=== PATIENT | male | born 1960 | race Caucasian/White ===

== ENCOUNTER 2017-04-23 22:13 | Emergency (ER) | payer BC, OTHER ==
[2017-04-23 22:20] VITALS: TEMP 98.1
--- NOTE | 2017-04-23 23:27 | EDPHY ---
H & P Stated Complaint: FALL ON STAIRS CHIN LACERATION Source: Patient, Family Exam Limitations: No limitations - Personal History Current Tetanus/Diphtheria Vaccine: Yes Current Tetanus Diphtheria and Acellular Pertussis (TDAP): Yes - Medical/Surgical History Hx Asthma: No Hx Chronic Respiratory Disease: No Hx Diabetes: No Hx Cardiac Disease: No Hx Renal Disease: No Hx Cirrhosis: No Hx Alcoholism: No Hx HIV/AIDS: No Hx Splenectomy or Spleen Trauma: No Other PMH: ANXIETY , GERD - Social History Smoking Status: Never smoked HPI/ROS: CHIEF COMPLAINT: Fall, chin laceration HISTORY OF PRESENT ILLNESS: Patient was walking up a set of stairs earlier today when he tripped and fell. He struck his chin on the step. He did not lose consciousness. He sustained a laceration and has no other complaints. No headache. No changes in vision. No nausea or vomiting. No bruising. Minimal bleeding that stopped with mild pressure. No neck pain. No chest or back injury. No abdominal injury. No injury elsewhere. Tetanus is up-to-date as of 2 years ago. No other associated complaints or modifying factors. TIME OF INJURY: 4:30 p.m. TETANUS STATUS: Current as of 2 years REVIEW OF SYSTEMS: Ten systems reviewed and are negative unless otherwise noted in the HPI EXAMINATION General Appearance: Alert, no distress Head: normocephalic, atraumatic. No Brennan sign. No raccoon eyes. No deformity. Eyes: Pupils equal and round, no conjunctival pallor or injection ENT, Mouth: Mucous membranes moist Neck: Normal inspection. No tenderness. No crepitus, step-off or deformity. Painless range of motion all planes Respiratory: No dyspnea or retractions. No distress Cardiovascular: Pulses normal throughout. Brisk cap refill Neurological: GCS 15. A&O, sensory symmetric, strength symmetric. No pronator drift. No dysmetria. Skin: Warm and dry, no rash. 1.5 cm laceration to the chin, submental. Subcutaneous exposed. No exposure of them fascia or muscle belly Extremities: Nontender, no pedal edema Psychiatric: Mood and affect normal MDM: 10:30 p.m. Mechanical fall with chin laceration. No concussion. No headache, nausea or vomiting. No indication for CT scan of the head based on [place] [facility] head rules. Wound has been anesthetized. Proceed with irrigation closure. 11:00 p.m. PROCEDURE: Laceration repair Consent: Verbal Location: Submental Length of repair: 1.5 cm Complexity: Complex Layer involvement: 2 layer Anesthesia: Local, 1% lidocaine with epinephrine, 7 mL Irrigation: Extensive Debridement: None Procedure description: Following good anesthesia, the wound was copiously irrigated. Wound bed was explored and there is no foreign body noted. Wound borders were approximated well with good hemostasis. Tolerated well without complication. Suture/Staple material: Subcutaneous layer: 5-0 Vicryl, 4 simple interrupted sutures. Dermal layer: 7-0 Prolene, 4 simple interrupted Wound care: Routine as discussed Suture/Staple removal: 5-7 Days 11:25 p.m. Chin laceration without complication. This has been closed with good approximation and good hemostasis. Wound care discussed. Discharged home with instructions to return here in 5-7 days for suture removal. Return sooner for signs of infection as discussed. He is comfortable with this plan and discharged home stable condition SUTURE STAPLE REMOVAL: 5-7 ED Precautions: Worsening pain. Erythema, edema, cyanosis, pallor, paresthesia or anesthesia. SUPERVISION: This patient was independently evaluated without direct examination by the attending physician. Case was discussed with attending physician. (Fabio Vogel ) Constitutional: Initial Vital Signs Temperature (C) 36.7 C 04/23/17 22:16 Heart Rate 82 04/23/17 22:16 Respiratory Rate 18 04/23/17 22:16 Blood Pressure 109/73 04/23/17 22:16 O2 Sat (%) 91 L 04/23/17 22:16 O2 Delivery Mode Room Air Allergies/Adverse Reactions: No Known Allergies Allergy (Unverified 04/23/17 22:19) Home Medications: Medication Instructions Recorded Citalopram Hydrobromide [celeXA 10 10 mg PO DAILY 04/23/17 MG] Famotidine [Pepcid 20 MG (*)] 20 mg PO BID 04/23/17 Omeprazole Magnesium [PRILOSEC] 2.5 mg PO 04/23/17 Medical Decision Making Other Provider: PHYSICIAN DOCUMENTATION: The patient was evaluated and managed by the Physician Cook Chief. My co- signature indicates that I have reviewed this chart and I agree with the findings and plan of care as documented. I am the secondary supervising physician. (Ana Marie) Departure - Departure Disposition: Home, Routine, Self-Care Clinical Impression: Chin laceration Qualifiers: Encounter type: initial encounter Qualified Code(s): S01.81XA - Laceration without foreign body of other part of head, initial encounter Condition: Good Instructions: Care For Your Stitches (ED), Laceration (ED) Additional Instructions: 1. Bacitracin once or twice daily next 2. Keep the wound covered, clean and dry 3. Here in 5-7 days for suture removal Referrals: GLEN BONILLA [Other] - As per Instructions
[2017-04-24] VITALS: BP 106/78; PULSE 76; RESP 14; O2SAT 93
== END 2017-04-24 | disposition home or self-care (01) ==
PROC: 0HQ1XZZ Repair Face Skin, External Approach (ICD-10-PCS; principal; 2017-04-23)
DX: S01.81XA Laceration without foreign body of other part of head, initial encounter (principal); W10.9XXA Fall (on) (from) unspecified stairs and steps, initial encounter; Y93.01 Activity, walking, marching and hiking